=== PATIENT | female | born 1955 | race Caucasian/White ===

== ENCOUNTER 2024-05-13 12:38 | Inpatient (IN) | payer MEDICARE ==
[2024-05-13] VITALS (19 sets, daily range): BP systolic 95–161; BP diastolic 55–94
[~2024-05-13] VITALS: Ht 160 cm; Wt 48.0 kg
[~2024-05-13 12:38] MED LIST: ABILIFY10 MG OR; ABILIFY30 MG PO; ACETTAB3 OR; B121000 MC1; BIOTIN1000 MCG PO; CAMBIA50 MG PO; CORRECTOL100 MG PO; D31000 UNIT PO; ELAVIL25 M1 OR; FIORICET PO; FROVA2.5 MG OR; FROVA2.5 MG PO; LAMICTAL200 M1 OR; LAMICTAL200 M1 PO; LEXAPRO10 MG PO; LEXAPRO20 MG OR; LIPITOR10 M1 PO; LORTAB 10-325 M1 TAB PO; MAXALT5 MG OR; NAPROSYN500 MG PO; PEPCID40 MG PO; PERCOCET 5/325M1 TAB OR; PROVENTIL0.083 % IN; RELPAX20 MG OR; RELPAX20 MG PO; SUMATRIPTA1 IJ; SYNTHROID75 MCG PO; TOVIAZ8 MG OR; VANQUISH OR; [UNRECOGNIZED DRUG - OTHER]
--- NOTE | 2024-05-13 12:46 | NUR ---
LUIS TO ER ROOM 12 WITH STEADY GAIT.
[2024-05-13] MEDS ORDERED: ONDANSETRON HCl 4 MG/2 ML SDV IV STA (12:48)
[2024-05-13] MEDS ORDERED: SODIUM CHLORIDE 0.9% 1,000 ML IV STA (12:48)
[2024-05-13] MEDS ORDERED: KETOROLAC TROMETHAMINE 15 MG/ML SDV IV STA (12:48)
[2024-05-13 13:06] LABS: BASO% 0.5 % (0-3); EOS% 0.9 % (0-8); HEMATOCRIT 35.7 % (37.0-47.0); HEMOGLOBIN 11.7 g/dl (12.0-16.0); IMMATURE GRANULOCYTES 0.2 % (0.0-5.0); LYMPH% 18.1 % (15-41); MEAN CELL VOLUME 98.6 fL CALC (80.0-100.0); MEAN CORPUSCULAR HGB 32.3 pG CALC (26.0-32.0); MEAN CORPUSCULAR HGB CONC 32.8 g/dL CAL (32.0-36.0); MONO% 13.5 % (2-13); NEUT# 5.38 thou/uL (2.00-7.15); NEUT% 66.8 % (42-76); RED BLOOD COUNT 3.62 mill/uL (4.20-5.60); RED CELL DISTRI WIDTH 12.4 % (11.5-15.5)
[2024-05-13 13:20] LABS: ALBUMIN 4.3 g/dL (3.2-5.0); ALKALINE PHOSPHATASE 53 u/l (38-126); ANION GAP 7 (6-22 (CALC)); BUN 18 mg/dL (8-23); BUN/CREATININE RATIO 19 (12-20 (CALC)); CARBON DIOXIDE 27 mmol/l (22-30); CHLORIDE 100 mmol/l (95-108); CREATININE 0.9 mg/dL (0.5-1.0); ESTIMATED GFR 69 ML/MIN (>=90 (CALC)); LIPASE 56 u/l (23-300); POTASSIUM 3.9 mmol/l (3.5-5.1); SGOT/AST 40 u/l (9-36); SODIUM 130 mmol/l (137-146); TOTAL PROTEIN 7.2 g/dL (6.3-8.2)
[2024-05-13 13:29] LABS: BILIRUBIN, TOTAL 0.9 mg/dL (0.02-1.3)
[2024-05-13] MEDS ORDERED: GLUCOSAMINE1500 COM PO (14:22)
[2024-05-13] MEDS ORDERED: ABILIFY10 MG PO (14:23)
[2024-05-13 14:54] LABS: URINE BILIRUBIN - DIPSTICK Negative (NEGATIVE); URINE BLOOD DIPSTICK Trace-lysed (NEGATIVE); URINE COLOR Yellow; URINE GLUCOSE - DIPSTICK Negative (NEGATIVE); URINE KETONE Negative (NEGATIVE); URINE LEUK ESTERASE Negative (NEGATIVE); URINE NITRITE - DIPSTICK Negative (Negative); URINE PH 5.5 (4.5-8.0); URINE PROTEIN - DIPSTICK Negative (NEG-TRACE); URINE SPECIFIC GRAVITY 1.015; URINE UROBILINOGEN - DIPSTICK 0.2 E.U./dL (0.2)
[2024-05-13] MEDS ORDERED: MEPERIDINE HCL 50 MG/ML IV ONE (15:45)
[2024-05-13] MEDS ORDERED: SODIUM CHLORIDE 0.9% 1,000 ML IV PRN (16:00)
--- NOTE | 2024-05-13 16:10 | NUR ---
PATIENT UP TO BATHROOM.
--- NOTE | 2024-05-13 17:12 | NUR ---
REPORT GIVEN PATIENT TAKEN TO ROOM 261
--- NOTE | 2024-05-13 17:14 | NUR ---
PATIENT ARRIVED TO NC FROM THE ED VIA WC TO ROOM 261. PATIENT A&OX4. BREATHING UNLABORED ON ROOM AIR. IV IN RAC INFUSING FLUIDS PER EMAR; SITE CLEAN AND INTACT. ASSESSMENT COMPLETED. PT DENIES ANY N/D/V AT THIS TIME. STATES TO HAVE SOME ABDONMINAL PAIN; MEDICATION WAS ADMINISTERED IN THE ED. PERSONAL BELONGINGS RETAINED WITH PT PER PT REQUEST. PT AWARE SHE IS ON NPO STATUS. 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 BED IN LOWEST POSITION. NO NEEDS AT THIS TIME.POC ONGOING.
--- NOTE | 2024-05-13 18:55 | NUR ---
PATIENT O2 STATS IN 80'S. 2L NC APPLIED;STATS UP TO 95. MD NOTIFIED AND AWARE. NEW ORDERS PUT IN PER MD.
--- NOTE | 2024-05-13 19:15 | NUR ---
PATIENT SITTING UP IN BED AT THIS TIME WITH O2 VIA NASAL CANNULA IN PLACE AT 2LPM. O2 SAT IS 96% AT THIS TIME. PATIENT IS AWAKE ALERT AND ORIENTEDX3. PATIENT WITH H/O COPD BUT DOES NOT USE O2 AT HOME. LUNGS ARE DIMINISHED THROUGHOUT. RT HERE AND ABG'S ARE BEING DRAWN. PATIENT IS NPO ADMITTED FOR SBO-NO BM IN SEVERAL DAYS PER PATIENT. ABD IS DISTENDED AND FIRM WITH ACTIVE BS. PATIENT STATES THAT SHE IS PASSING OCC FLATUS. PATIENT DENIES ANY NAUSEA AT THIS TIME. DOES C/O PAIN-10/10 ON PAIN SCALE WILL NOTIFY DOCTOR FOR PAIN MEDS. CXR HAS BEEN ORDERED-AWAITING RADIOLOGY. SAFETY PRECAUTIONS REINFORCED. CALL LIGHT IN REACH. WILL CONT TO MONITOR.
[2024-05-13] MEDS ORDERED: ONDANSETRON HCl 4 MG/2 ML SDV IV PRN (19:40)
[2024-05-13] MEDS ORDERED: MEPERIDINE HCL 50 MG/ML IV PRN (19:40)
[2024-05-13] MEDS ORDERED: ALBUTEROL SULFATE 2.5 MG VIAL NEB PRN (19:40)
--- NOTE | 2024-05-13 21:00 | NUR ---
SITIING UP IN BED-STILL WITH SEVERE ABD PAIN-MEDICATED WITH DEMEROL 25MG IVP VIA RAC SITE FOR 10/10 PAIN SCALE. IVF NS PATENT AND INFUSING VIA RAC SITE AT 125CC/HR. GOOD BLOOD RETURN WHEN FLUSHED. STILL WITH NO [id number]. O2 SAT IS 98%-O2 DECREASED TO 1LPM N/C. REMAINS NPO-AWAITING CXR REPORT. SAFETY PRECAUTIONS REINFORCED. CALL LIGHT IN REACH. WILL CONT TO MONITOR.
--- NOTE | 2024-05-13 21:17 | NUR ---
PATIENT RESTING IN BED ON PHONE O2 SAT IS NOW 94% WITH O2 VIA NASAL CANNULA AT 1LPM. O2 HAS BEEN SHUT OFF AT THIS TIME. WILL CONT TO MONITOR.
[2024-05-13] MEDS ORDERED: AZTREONAM 2 GM in SODIUM CHLORIDE 0.9% 100 ML IV SCH (22:00)
[2024-05-13] MEDS ORDERED: AZTREONAM 2 GM VIAL IV SCH (22:00)
[2024-05-14] VITALS (9 sets, daily range): BP systolic 95–117; BP diastolic 50–70
--- NOTE | 2024-05-14 01:04 | NUR ---
PATIENT TRANSFERRED TO ICU BED 1 VIA BED ORDERED. BEDSIDE REPORT GIVEN TO AUGUST. PATIENT TO BE TRANSFERRED TO [facility] ORDERED.
--- NOTE | 2024-05-14 02:00 | NUR ---
PATIENT C/O ABD PAIN-8/10 ON PAIN SCALE. MEDICATED WITH DEMEROL 25MG IVP VIA RAC SITE. IVF NS PATENT AND INFUSING AT 125CC/HR. SITE IS HEALTHY WITH GOOD BLOOD RETURN WHEN FLUSHED. ABD REMAINS DISTENDED WITH ACTIVE BS. PASSING VERY LITTLE FLATUS. REMAINS NPO ORDERED. SAFETY PRECAUTIONS REINFORCED. CALL LIGHT IN REACH. WILL CONT TO MONITOR.
[2024-05-14 05:21] LABS: MEAN CORPUSCULAR HGB 32.9 pG CALC (26.0-32.0); MEAN CORPUSCULAR HGB CONC 32.3 g/dL CAL (32.0-36.0); RED BLOOD COUNT 3.04 mill/uL (4.20-5.60); RED CELL DISTRI WIDTH 12.6 % (11.5-15.5)
[2024-05-14 05:39] LABS: CREATININE 0.7 mg/dL (0.5-1.0); MAGNESIUM 1.9 mg/dL (1.6-2.3); POTASSIUM 4.1 mmol/l (3.5-5.1)
[2024-05-14 05:47] LABS: ALBUMIN 3.1 g/dL (3.2-5.0); BILIRUBIN, TOTAL 0.4 mg/dL (0.02-1.3); TOTAL PROTEIN 5.2 g/dL (6.3-8.2)
--- NOTE | 2024-05-14 06:21 | NUR ---
RESTING IN BED AT THIS TIME WITH O2 VIA NASAL CANNULA IN PLACE AT 1LPM. IVF PATENT AND INFUSING VIA RAC SITE AT 125CC/HR. AZACTAM HAS BEEN GIVEN. STILL NPO. UJP TO THE BR TO VOID. STEADY GAIT WHEN UP. MEDICATED FOR ABD PAIN WITH DEMEROL 25MG IVP FOR 8/10 PAIN SCALE. CALL LIGHT IN REACH. WILL CONT TO MONITOR.
[2024-05-14] MEDS ORDERED: LORazepam 2 MG/ML IV PRN (06:30)
--- NOTE | 2024-05-14 07:00 | NUR ---
RECEIVED BEDSIDE REPORT FROM LATANYA COHEN. PT LYING IN BED WITH EYES CLOSED. ALL SAFETY MEASURES IN PLACE AND FUNCTIONING PROPERLY. VSS. NO NEEDS AT THIS TIME.
[2024-05-14] MEDS ORDERED: PHENYLEPHRINE HCL 10 MG/ML VIAL IV ONE (07:51)
[2024-05-14] MEDS ORDERED: ROCURONIUM BROMIDE 10 MG/ML 5ML VIAL IV ONE (07:51)
[2024-05-14] MEDS ORDERED: LACTATED RINGER'S 1,000 ML BAG IV ONE (07:51)
[2024-05-14] MEDS ORDERED: LIDOCAINE HCL 2% 2ML SDV IV ONE (07:51)
[2024-05-14] MEDS ORDERED: ACETAMINOPHEN 1,000 MG/100 ML VIAL IV ONE (07:51)
[2024-05-14] MEDS ORDERED: SUCCINYLCHOLINE CHLORIDE 20 MG/ML 10ML VIAL IV ONE (07:51)
[2024-05-14] MEDS ORDERED: ONDANSETRON HCl 4 MG/2 ML SDV IV ONE (07:51)
[2024-05-14] MEDS ORDERED: SUGAMMADEX SODIUM 200 MG/2 ML SDV IV ONE (07:51)
[2024-05-14] MEDS ORDERED: PROPOFOL 200 MG/20 ML VIAL IV ONE (07:51)
[2024-05-14] MEDS ORDERED: DEXAMETHASONE SODIUM PHOSPHATE PF 10 MG/ML SDV IV ONE (07:51)
[2024-05-14] MEDS ORDERED: KETOROLAC TROMETHAMINE 30 MG/ML SDV IV ONE (07:51)
[2024-05-14] MEDS ORDERED: HYDROmorphone HCL 2 MG/AMP IV PRN ×3 (10:50→19:15)
--- NOTE | 2024-05-14 11:07 | NUR ---
PT TO OR FOR EX LAP ACCOMPANIED BY FILTER PRESS PUMPER.
[2024-05-14] MEDS ORDERED: ALBUTEROL SULFATE 2.5 MG VIAL ONE (11:17)
[2024-05-14] MEDS ORDERED: FAMOTIDINE 10MG/ML 2ML SDV IV ONE (11:17)
[2024-05-14] MEDS ORDERED: LACTATED RINGER'S 1,000 ML IV ONE (11:17)
[2024-05-14] MEDS ORDERED: AZTREONAM 2 GM in SODIUM CHLORIDE 0.9% 100 ML IV SCH ×2 (14:00→22:00)
[2024-05-14] MEDS ORDERED: AZTREONAM 2 GM in SODIUM CHLORIDE 0.9% 100 ML IV PRN (14:20)
[2024-05-14] MEDS ORDERED: STERILE WATER FOR IRRIGATION 1,000 ML BTL IR ONE (16:52)
[2024-05-14] MEDS ORDERED: SODIUM CHLORIDE 3,000 ML BAG FOR IRRIGATION IR ONE (16:52)
[2024-05-14] MEDS ORDERED: HYDROmorphone HCL 2 MG/AMP IV ONE (17:15)
--- NOTE | 2024-05-14 20:08 | NUR ---
PATIENT IS SITTING UP IN BED WITH O2 VIA NASAL CANNULA IN PLACE AT 2LPM. O2 SAT AT THIS TIME IS 96%. PATIENT IS POST-OP EXP LAP WITH RESECTION. NPO, NGT TO LIWS DRAINING THICH BROWN FLUID. ABD DRESSING CDI WITH SMALL AMT OF SHADOWING NOTED TO THE MIDDLE OF THE DRESSING. FUENTES CATH PATENT AND DRAINING YELLOW URINE. IVF PATENT AND INFUSING VIA RAC AT 150CC/HR. SITE IS HEALTHY WITH GOOD BLOOD RETURN WHEN FLUSHED. SCD'S IN PLACE. INSTRUCTED ON USE OF IS Q1H WHILE AWAKE-ABLE TO DEMONSTRATE PROPER USE OF THE DEVICE-WILL REINFORCE. MEDICATED FOR POST-OP ABD PAIN WITH DILAUDID 2MG IVP FOR 9/10 PAIN SCALE. PATIENT WITH NO COMPLAINTS OF NAUSEA, LUNGS ARFE DIMINISHED BUT CLEAR. ABD IS SOFT WITH HYPOACTIVE BS. SAFETY PRECAUTIONS REINFORCED. CALL LIGHT IN REACH, WILL CONT TO MONITOR.
--- NOTE | 2024-05-14 20:45 | NUR ---
PATIENT ASSISTED OOB TO THE CHAIR PER PATIENT REQUEST. TOLERATED WELL BUT PATIENT IS ASKING FOR MORE PAIN MEDS AT THIS TIME. INFORMED THAT IT WAS TOO EARLY AND WILL CONT TO MONITOR. USING IS INSTRUCTED. SAFETY PRECAUTIONS REINFORCED. CALL LIGHT IN REACH. WILL CONT TO MONITOR.
[2024-05-14] MEDS ORDERED: GUAIFENESIN 600 MG/TAB PO SCH (21:00)
--- NOTE | 2024-05-14 22:00 | NUR ---
PATIENT ASSISTED BACK INTO BED. PATIENT CONT TO ASK FOR MORE PAIN MEDS-BP IS 100/50 AT THIS TIME. WILL CONT TO MONITOR. NGT CONT TO DRAIN BROWN FLUID. FUENTES DRAINING YELLOW URINE. AZACTAM INFUSING VIA RAC SITE. O2 VIA NASAL CANNULA. SCD'S IN PLACE. SITTING UP IN BED AT THIS TIME. SAFETY PRECAUTIONS REINFORCED. CALL LIGHT IN REACH. WILL CONT TO MONITOR.
--- NOTE | 2024-05-14 23:32 | NUR ---
PATIENT SITTING UP IN BED-CONT TO ASK FOR PAIN MED BUT BP REMAINS LOW AT 95/70 WITH HR-99. O2 SAT IS AT 92-O2 VIA NASAL CANNULA ADJUSTED AND O2 SAT UP TO 94%. NGT CONT TO DRAIN BROWN FLUID. IVF PATENT AND INFUSING VIA RIGHT AC SITE AT 150CC/HR. CALL [facility] IN REACH. WILL CONT TO MONITOR.
[2024-05-15] VITALS (29 sets, daily range): BP systolic 88–113; BP diastolic 47–67
--- NOTE | 2024-05-15 00:09 | NUR ---
PATIENT SITTING UP ION BED-C/O POST-OP ABD PAIN 9/10 MON PAIN SCALE. BP 103/57, HR-100 WITH O2 SAT OF 96% WITH O2 VIA NASAL CANNULA AT 2LPM. NGT TUBE DRAINING DARK GREENISH/BROWN FLUID AT THIS TIME-CONT TO LIWS ORDERED. FUENTES PATENT AND DRAING YELLOW URINE. SCD'S IN PLACE. MEDICATED WITH DILAUDID 2MG IVP ORDERED FOR PAIN. CALL LIGHT IN REACH. WILL CONT TO MONITOR.
--- NOTE | 2024-05-15 01:08 | NUR ---
PATIENT FOUND SITTING ON THE SIDE OF THE BED TRYING TO GET OOB-NGT IS DISCONNECTED FROM SUCTION ON THE FLOOR. PATIENT ASSISTED BACK TO BED. REORIENTED TO ROOM AND SURROUNDINGS. ASSISTED PATIENT TO CLEAN UP AND GOWN WAS CHANGED. ASSISTED OOB TO THE RECLINER AT THIS TIME. NGT RECONNECTED TO LIWS AND CONT TO DRAIN BROWN FLUID. NGT SECURED TO THE GOWN USING SAFETY PIN. LINENS IN THE BED WERE CHANGED AND PATIENT ASSISTED BACK TO BED. FUENTES PATENT AND DRAINING YELLOW URINE. IVF NS PATENT AND INFUSING VIA RAC SITE AT 150CC/HR. O2 VIA NASAL CANNULA IN PLACE AT 2LPM. ABD DRESSING INTACT. SCD'S REAPPLIED. REMAINS NPO. BED ALARM PLACED FOR PATIENT SAFETY. CALL LIGHT IN REACH. WILL CONT TO MONITOR.
--- NOTE | 2024-05-15 02:00 | NUR ---
PATIENT SITTING UP IN BED WITH EYES CLOSED BUTEASILY AROUSABLE. ASKING FOR ICE CHIPS. STILL NPO. NGT PATENT AND DRAINING FULL TIME PARAMEDIC BROWN FLUID AT THIS TIME-LIWS IN PLACE. FUENTES CATH PATENT AND DRAINING YELLOW URINE. O2 VIA NASAL CANNULA IN PLACE AT 2LPM. IVF NS PATENT ANDINFUSING VIA RAC SITE AT 150CC/HR. SCD'S IN PLACE. BED ALARM INB PLACE FOR PATIENT SAFETY. CALL LIGHT IN REACH. WILL CONT TO MONITOR.
--- NOTE | 2024-05-15 04:30 | NUR ---
PATIENT RESTING IN BED-NGT CONT TO DRAIN BROWN FLUID. REMAINS NPO. O2 VIA NASAL CANNULA IN PLACE AT 2LPM. ABD DRESSING INTACT. ABD IS SOFT. IVF NS PATENT AND INFUSING VIA RAC SITE AT 150CC/HR. FUENTES PATENT AND DRAINING YELLOW URINE. SCD'S IN PLACE. MEDICATED FOR POST-OP ABD PAIN WITH DILAUDID 2MG IVP. SAFETY PRECAUTIONS REINFORCED. BED ALARM IN PLACE FOR PATIENT SAFETY. CALL LIGHT IN REACH. WILL CONT TO MONITOR.
[2024-05-15 05:23] LABS: HEMATOCRIT 31.1 % (37.0-47.0); HEMOGLOBIN 9.8 g/dl (12.0-16.0); IMMATURE GRANULOCYTES 0.2 % (0.0-5.0); LYMPH% 6.7 % (15-41); MEAN CELL VOLUME 104.4 fL CALC (80.0-100.0); MEAN CORPUSCULAR HGB 32.9 pG CALC (26.0-32.0); MEAN CORPUSCULAR HGB CONC 31.5 g/dL CAL (32.0-36.0); MONO% 11.1 % (2-13); NEUT# 4.86 thou/uL (2.00-7.15); RED BLOOD COUNT 2.98 mill/uL (4.20-5.60)
[2024-05-15 05:36] LABS: ALBUMIN 2.6 g/dL (3.2-5.0); BILIRUBIN, TOTAL 0.3 mg/dL (0.02-1.3); CREATININE 0.7 mg/dL (0.5-1.0); MAGNESIUM 2.3 mg/dL (1.6-2.3); POTASSIUM 4.6 mmol/l (3.5-5.1); TOTAL PROTEIN 4.6 g/dL (6.3-8.2)
--- NOTE | 2024-05-15 07:45 | NUR ---
PT LAYING IN BED WATCHING TV, PT A&O X3, PUPILS PERRL, RESP. EVEN AND UNLABORED, LUNG SOUNDS ARE DIMINISHED, PT IS NOT TAKING DEEP BREATHS, ABD SOFT AND TENDER WITH HYPOACTIVE BOWEL SOUNDS, DRESSING REMAINS IN PLACE WITH A SMALL AMOUNT OF BLOODY DRAINAGE, DRESSING IS MARKED TO MONITOR DRAINAGE MORE CLOSELY, NG TUBE IN R NARE WITH GREENISH DRAINAGE, TUBE PLACEMENT CHECK, 16F FUENTES CATH IN PLACE WITH CLEAR YELLOW URINE DRAINING, PT HAS A STRONG RADIA AND PEDAL PULSES, 20G RAC IV IN PLACE WITH NS INFUSING AT PRESCRIBED RATE, SAFETY MEASURES REINFORCED, CALL BARRERA WITHIN REACH
--- NOTE | 2024-05-15 11:16 | NUR ---
PT SITTING UP IN THE RECLINER WAS COMPLAINING OF ABD PAIN AND FEELING ANXIOUS, PT WAS MEDICATED, NURSE STAYED IN THE ROOM, PT'S RESP RATE SLOWED DOWN AND HER EYES ROLLED IN THE BACK OF HER HEAD, NURSE ACTIVATED A RAPID RESPONSE AND DR CASTRO NOTIFIED, PT WAS MOVED TO THE BED FROM THE RECLINER, O2 WAS APPLIED TO THE PT, PT OPENS EYES TO HER NAME BUT IS UNABLE TO KEEP HER EYES OPENED, PT WAS GIVEN NARCAN AND BECAME MORE RESPONSIVE, PT WAS ALERT AND ORIENTED, FLUID BOLUS GIVEN FOR BP OF 74/42, PT TO BE TRANSFERED TO ICU
[2024-05-15] MEDS ORDERED: LORazepam 2 MG/ML IV SCH (11:30)
[2024-05-15] MEDS ORDERED: DEXTROSE 5% / 0.9% NACL 1,000 ML IV PRN (11:45)
[2024-05-15] MEDS ORDERED: NALOXONE HCL 0.4 MG/ML 1ML AMP IV PRN (11:50)
[2024-05-15] MEDS ORDERED: HYDROmorphone HCL 2 MG/AMP IV PRN (11:50)
--- NOTE | 2024-05-15 12:15 | NUR ---
PT ARRIVED TO ICU AFTER RAPID RESPONSE CALLED. PT WAS GIVEN NARCAN TO REVERSE PAIN MEDS GIVEN PRIOR. PT BELONGINGS BROUGHT FROM MED SURG; PT SIGNIFICANT OTHER PRESENT. PT HAD ABDOMINAL SURGERY YESTERDAY WITH DR. LYN. AT THIS TIME PT IS AWAKE, ALERT, AND APPROPRIATE. LUNG SOUNDS CLEAR UPPER, EXPIRATORY WHEEZE RIGHT MIDDLE, AND DIMINISHED LOWER. PT IS ON 4LNC, TITRATED DOWN TO 2L. NO SOB NOTED. PT'S RESP RATE 18-19. HEART SOUNDS S1S2; PT IS SINUS TACH 120'S ON MONITOR; MD AWARE. BP WNL, 113/66. PULSES STRONG UPPER EXTREMETIES, WEAK LOWER. BOWEL SOUNDS ACTIVE. ABDOMEN SOFT/TENDER. MIDLINE ABDOMINAL INCISION COVERED WITH BANDAGE, SOME RED DRAINAGE SEEN ON DRESSING. DR. LYN AT BEDSIDE TO ASSESS PT AND SPEAK WITH FAMILY. PER DR. LYN DRESSING CHANGE TO BE DONE BY HIM TOMORROW. VERBAL ORDER THAT PT CAN HAVE ICE CHIPS; ICE CHIPS GIVEN TO PT. AT THIS TIME ALL VSS. CALL LIGHT IN REACH. SCD'S ON. INCENTIVE SPIROMETER AT BEDSIDE.
[2024-05-15 12:47] LABS: ALBUMIN 2.6 g/dL (3.2-5.0); BILIRUBIN, TOTAL 0.3 mg/dL (0.02-1.3); CREATININE 0.9 mg/dL (0.5-1.0); POTASSIUM 4.6 mmol/l (3.5-5.1); TOTAL PROTEIN 4.7 g/dL (6.3-8.2)
[2024-05-15 12:48] LABS: BASO% 0.1 % (0-3); HEMATOCRIT 30.6 % (37.0-47.0); HEMOGLOBIN 9.5 g/dl (12.0-16.0); IMMATURE GRANULOCYTES 0.3 % (0.0-5.0); LYMPH% 6.3 % (15-41); MEAN CELL VOLUME 105.2 fL CALC (80.0-100.0); MEAN CORPUSCULAR HGB 32.6 pG CALC (26.0-32.0); MONO% 9.4 % (2-13); NEUT# 7.84 thou/uL (2.00-7.15); NEUT% 83.9 % (42-76); RED BLOOD COUNT 2.91 mill/uL (4.20-5.60); RED CELL DISTRI WIDTH 13.1 % (11.5-15.5)
--- NOTE | 2024-05-15 13:00 | NUR ---
Rapid response called at 1231 upon entering attending and primary nurse at bedside. Patient Hr126 and respirations 7 even and unlabored. Report given patient received 2mg dilaudid and 0.5mg ativan at approximately 1214. Shortly after patient became obtunded and rapid called. Crash cart at at bedside. patient given 0.4mg narcan pulled from crash cart and adminstered via IVP. within 5 seconds patient became alert and oriented times 3. respirations 17 and heart rate remained at 126. Patient talking normally and following commands asking for a drink. Patient denies any nausea or discomfort at this time. MD remained at bedside and gave verbal orders to move patient to ICU for observation. Rapid response cleared at 1243 and patient being prepared to move to ICU.
[2024-05-15] MEDS ORDERED: CALCIUM GLUCONATE 1 GM in SODIUM CHLORIDE 0.9% 50 ML IV SCH (14:00)
[2024-05-15] MEDS ORDERED: AZTREONAM 2 GM in SODIUM CHLORIDE 0.9% 100 ML IV SCH (14:00)
--- NOTE | 2024-05-15 14:00 | NUR ---
NEW IV STARTED IN LFA WITHOUT DIFFICULTY. WHEN ENTERING PT ROOM, NURSE EXPLAINED TO PT ABOUT STARING NEW IV AND GIVING ANTIBITIC. PT WAS CONFUSED AND DISORIENTED, THNKING SHE HAD TO PAY FOR THE MEDICATION. PT REORIENTED TO PLACE AND SITUATION, REMINDED THAT SHE IS IN THE HOSPITAL AND HAD SURGERY YESTERDAY.
[2024-05-15] MEDS ORDERED: DEXTROMETHORPHAN-Guaifenesin 20-200 MG/10 ML UDC PO PRN (14:50)
--- NOTE | 2024-05-15 15:06 | NUR ---
PT ASSISTED TO SIT IN CHAIR. REPOSITIONED SO THAT MORE COMFORTABLE. BELONGINGS WITHIN REACH. VSS. FAMILY AT BEDSIDE.
--- NOTE | 2024-05-15 16:28 | NUR ---
PT ASSISTED BACK TO BED PER HER REQUEST. VISITORS AT BEDSIDE. PT REMAINS TACHYCARDIC 120'S. DR. CASTRO NOTIFIED.
--- NOTE | 2024-05-15 18:07 | NUR ---
PT MEICATED FOR PAIN PER MAR. FAMILY REMAINS AT BEDSIDE. CALL LIGHT IN REACH. VSS.
--- NOTE | 2024-05-15 18:58 | NUR ---
PT'S TROPONIN ELEVATED. DR. CASTRO NOTIFIED. ORDERS RECEIVED TO PLACE CARDIOLOGY CONSULT. PT DENIES ANY CHEST PAIN, ONLY REORTING ABDOMINAL PAIN FROM SURGERY AT THIS TIME.
[2024-05-15] MEDS ORDERED: LORazepam 2 MG/ML IV PRN (19:00)
--- NOTE | 2024-05-15 20:00 | NUR ---
Cardiology visit completed with Pt , Dr. Hong requesting transfer, Rupinder paulino aware. 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 pt being transferred for high troponins. lovenox and asa 81 given and lipitor per MD orders. [facility] called back adn they do not have an ICU or a telemetry bed available , pt and family offered [facility] otr [place] ,awaiting [facility] transfer center to call back within more information and a bed. pt and family updated .
[2024-05-15] MEDS ORDERED: ASPIRIN 81 MG/TAB PO SCH (20:40)
[2024-05-15] MEDS ORDERED: ATORVASTATIN CALCIUM 40 MG/TAB PO SCH (21:00)
[2024-05-15] MEDS ORDERED: ENOXAPARIN SODIUM 100 MG/ML SYR SC SCH (21:00)
--- NOTE | 2024-05-15 22:00 | NUR ---
waiting [facility] transfer center to call back. pt HR 115, pt was oob to chair beinging iof shift now back to bed , IVF going at 150cc/hr abx hung, medicated for pain . significant other and daugheter at bedside. call simon within reach ice chips available , NG clamped for PO meds. all needs met.
--- NOTE | 2024-05-15 23:45 | NUR ---
pt NG unclammped top low intermittant suction . pt in bed resting comfortbaly. IVF at 150cc/hr. combs out put charted. adequate ammount of clear yellow. awaiting [facility] transfer center to call.call simon within reach all needs met.
[2024-05-16] VITALS (18 sets, daily range): BP systolic 91–118; BP diastolic 56–72
--- NOTE | 2024-05-16 | NUR ---
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 family adn pt OK the transfer, awating transfer cetner to call back with a bed. pt and family educated on ice , chips pt was taking in too many eductaed only to wet mouth now and then , pts, abdominal dressing the same as beinginning of shift dressing clean dry and inatct with a small amount of shadowwing approx 1.5 ncghes in diameter seen . call simon within reach on quality assurance monitor final , ST HR 109, all needs met. family at bedside, garret drainaing clear yellow 125cc for the last 2 hours documented in I and O section of [facility].
--- NOTE | 2024-05-16 01:36 | NUR ---
pt does not use oxygen at home, pt was on 2l pt ween off o2 at midnight pt sats remain 96 % no issues. called the call center, they stated they were looking for ICU bed only, pt does not have gtts or any invasive ICU needs. pt was med surg prior to being narcaned earlier yesterday . Call center stated they will call Dr. burton to comfirm bed needs, for tele for pt and non ICU bed needed.
--- NOTE | 2024-05-16 02:01 | NUR ---
spoke to transport center for [facility], auto mechanic supervisor Rupinder updated. Transport center stated they spoke to Dr. Hong about ICU status , Dr. Chung stated to them , she was not an emergent transfer and can wait itll the morning when he can reassess her and downgrade her back to Med surg status with telemetry. transfer center stated that they put a call out to Dr. 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 pt famuily and pt updated to plan of care. pt resting comfortably in bed no complaints of chest pain minimal abdominal post surgical pain. BS hypoactive , NG to low intermittant suction , IVF going at 150cc/hr. call simon within reach ST HR 110 on monitor all needs met. .
--- NOTE | 2024-05-16 03:58 | NUR ---
assessment uncahnged pt medicated for pain and nausea, T 99.7 recoreded. i and o recorded. call simon within reach .
[2024-05-16 05:45] LABS: ALBUMIN 2.4 g/dL (3.2-5.0); BILIRUBIN, TOTAL 0.2 mg/dL (0.02-1.3); CREATININE 0.7 mg/dL (0.5-1.0); MAGNESIUM 2.7 mg/dL (1.6-2.3); POTASSIUM 4.1 mmol/l (3.5-5.1); TOTAL PROTEIN 4.4 g/dL (6.3-8.2)
[2024-05-16 05:50] LABS: BASO% 0.4 % (0-3); EOS% 0.8 % (0-8); HEMATOCRIT 26.8 % (37.0-47.0); HEMOGLOBIN 8.3 g/dl (12.0-16.0); IMMATURE GRANULOCYTES 0.2 % (0.0-5.0); LYMPH% 11.8 % (15-41); MEAN CELL VOLUME 103.9 fL CALC (80.0-100.0); MEAN CORPUSCULAR HGB 32.2 pG CALC (26.0-32.0); MONO% 17.9 % (2-13); NEUT# 3.27 thou/uL (2.00-7.15); NEUT% 68.9 % (42-76); RED BLOOD COUNT 2.58 mill/uL (4.20-5.60); RED CELL DISTRI WIDTH 13.6 % (11.5-15.5)
--- NOTE | 2024-05-16 06:17 | NUR ---
Dr. Hong notified about pt's troponin of 1.44, MD confirmed. and no orders at this time pending transfer.
--- NOTE | 2024-05-16 07:29 | NUR ---
PATIENT SITTING UP IN BED. ALERT AND ORIENTED X 2. LUNGS DIMINISHED TO ASCULTATION. BREATHING LABORED ON 2L NC. C/O [place] PAIN AT THIS TIME. PATIENT STATES SHE IS PRONE TO [facility] AND USUALLY TAKES [place] FOR RELIEF. ST ON THE MONITOR. ABDOMINAL DRESSING CLEAN, DRY AND INTACT. 100 mL OF YELLOW URINE NOTED IN FUENTES. AFEBRILE 98.9. SAFETY MEASURES IN PLACE INCLUDING BED IN LOW POSITION AND CALL LIGHT RESTING NEXT TO R HAND. NO APPARENT DISTRESS NOTED. WILL CONTINUE WITH PLAN OF CARE
--- NOTE | 2024-05-16 07:31 | NUR ---
CALL RECEIVED FROM TRANSFER CENTER. PATIENT TO GO TO [facility] BED 407.
[2024-05-16] MEDS ORDERED: ENOXAPARIN SODIUM 60 MG/0.6 ML SYR SC SCH (09:00)
[2024-05-16] MEDS ORDERED: ENOXAPARIN SODIUM 100 MG/ML SYR SC SCH (09:00)
--- NOTE | 2024-05-16 10:02 | NUR ---
PATIENT LEFT THE UNIT VIA STRETCHER TO [facility] WITH [facility] TE[facility]. ALL PERSONAL BELONGINGS SENT WITH PATIENT. ATTEMPTED TO CALL [facility] [employer] FOR REPORT AT [phone], HOWEVER NURSE NOT READY AT THIS TIME. GIVEN DIRECT LINE FOR CALL BACK. CALL RECEIVED FROM [facility], AT [phone] FOR REPORT.
[2024-05-17] MEDS ORDERED: TRELEGY ELLIPTA1 AER IN (21:26)
== END 2024-05-16 10:02 | disposition short-term general hospital (02) | DRG 329 ==
LOC: ED 12:38 → ED-I 14:50 → ED 15:10 → MS2 15:11 → ICU 05-15 12:00
PROVIDERS: Emergency Medicine; Student in an Organized Health Care Education/Training Program; ADMIT Internal Medicine; ATTEND Internal Medicine
PROC: 0DN80ZZ Release Small Intestine, Open Approach (ICD-10-PCS; principal; 2024-05-14)
PROC: 0DB80ZZ Excision of Small Intestine, Open Approach (ICD-10-PCS; 2024-05-14)
PROC: 0DBB0ZZ Excision of Ileum, Open Approach (ICD-10-PCS; 2024-05-14)
PROC: 0DBK0ZZ Excision of Ascending Colon, Open Approach (ICD-10-PCS; 2024-05-14)
PROC: 0DJD4ZZ Inspection of Lower Intestinal Tract, Percutaneous Endoscopic Approach (ICD-10-PCS; 2024-05-14)
PROC: 0DQ80ZZ Repair Small Intestine, Open Approach (ICD-10-PCS; 2024-05-14)
DX: K56.50 Intestinal adhesions [bands], unspecified as to partial versus complete obstruction (principal); I21.A1 Myocardial infarction type 2; K91.71 Accidental puncture and laceration of a digestive system organ or structure during a digestive system procedure; J43.9 Emphysema, unspecified; D64.9 Anemia, unspecified; T42.4X1A Poisoning by benzodiazepines, accidental (unintentional), initial encounter; T40.2X1A Poisoning by other opioids, accidental (unintentional), initial encounter; R06.03 Acute respiratory distress; I25.10 Atherosclerotic heart disease of native coronary artery without angina pectoris; F41.8 Other specified anxiety disorders; K63.89 Other specified diseases of intestine; G43.009 Migraine without aura, not intractable, without status migrainosus; K08.409 Partial loss of teeth, unspecified cause, unspecified class; F17.210 Nicotine dependence, cigarettes, uncomplicated; Y83.6 Removal of other organ (partial) (total) as the cause of abnormal reaction of the patient, or of later complication, without mention of misadventure at the time of the procedure; Y92.230 Patient room in hospital as the place of occurrence of the external cause; Z87.19 Personal history of other diseases of the digestive system; Z20.822 Contact with and (suspected) exposure to COVID-19
CPT/HCPCS: J0131; J0457; J1100; J1650; J2060; Q9967